=== PATIENT | female | born 1965 | race Caucasian/White ===

== ENCOUNTER → 2016-11-16 | Outpatient (CLI) | payer OTHER, MEDICARE ==
[~2016-11-16] MED LIST: BIOT1TAB2 PO; CARI350T PO; CELE200C PO; CINN500C2 PO; CRAN200C2 PO; CYCL1DRO EACHEYE; DULO60CA7 PO; HYDR4TAB48 PO; LISI5TAB7 PO; LORA10TA75 PO; METF500T4 PO; METO25TA35 PO; OMEP20TA62 PO; SIMV10TA3 PO; ZOLP10TA PO; lidocaine patch TD; tumeric PO
== END ==
LOC: STAR 14:00
PROVIDERS: ATTEND Orthopaedic Surgery
DX: Z02.9 Encounter for administrative examinations, unspecified (principal)

== ENCOUNTER 2016-11-22 05:33 | Day surgery (SDC) | payer OTHER, MEDICARE ==
[~2016-11-22] VITALS: Ht 160 cm; Wt 97.5 kg
[2016-11-22] MEDS ORDERED: LACTATED RINGERS 1,000 ML IV SCH (06:17)
[2016-11-22 06:18] VITALS: BP 104/72
[2016-11-22] MEDS ORDERED: LIDOCAINE 1%, 2ML SQ PRN (06:30)
[2016-11-22] MEDS ORDERED: BUPIVACAINE/PF 0.5% ONE (06:38)
[2016-11-22] MEDS ORDERED: methylPREDNISolone *ACETATE* 40 MG/ML ONE (06:38)
[2016-11-22] MEDS ORDERED: methylPREDNISolone *ACETATE* 40 MG/ML IM ONE (06:58)
[2016-11-22] MEDS ORDERED: BUPIVACAINE/PF 0.25% INFIL ONE (06:58)
[2016-11-22] MEDS ORDERED: BUPIVACAINE/PF 0.25% ONE (07:00)
[2016-11-22] MEDS ORDERED: PROPOFOL 10 MG/ML, 20ML ONE (07:07)
[2016-11-22] MEDS ORDERED: ONDANSETRON 2MG/ML, 2ML IVPush PRN (07:30)
== END 2016-11-22 08:50 ==
LOC: OUT 05:33
PROVIDERS: ATTEND Orthopaedic Surgery
DX: M16.11 Unilateral primary osteoarthritis, right hip (principal); E11.9 Type 2 diabetes mellitus without complications; Z88.5 Allergy status to narcotic agent; Z88.0 Allergy status to penicillin
CPT/HCPCS: 20610; 73501; 76000; J1030; J2704; J3490